=== PATIENT | male | born 1990 | race Caucasian/White ===

== ENCOUNTER 2017-05-02 10:18 | Emergency (ER) | payer OTHER ==
[2017-05-02 10:25] VITALS: BP 139/69; PULSE 108; RESP 20; TEMP 98
--- NOTE | 2017-05-02 10:43 | ED ---
General Adult HPI - General Chief complaint: Skin/Abscess/Foreign Body Stated complaint: skin irritation Time Seen by Provider: 05/02/17 10:27 Source: patient, RN notes reviewed Mode of arrival: ambulatory Limitations: no limitations - History of Present Illness Initial comments: 26-year-old male presents to the emergency department with a chief complaint of abscess to the left lower abdomen. Patient states that he has a history of these and has had about 3 of them over the last few months. Patient states that his pain has increased she's noticed some redness around the area so he thought that he should be evaluated. Patient ate that he does not know if he has history of MRSA or not. Patient denies any fever chills. Patient states he is now some redness around the area. Patient states he is not having drainage from the area this time. Patient's denies any other complaints. Patient denies any recent fever, chills, shortness of breath, chest pain, back pain, abdominal pain, nausea vomiting, numbness or tingling, dysuria or hematuria, constipation or diarrhea, headaches or visual changes, or any other current symptoms. - Related Data Previous Rx's Medication Instructions Recorded Sulfamethox-Tmp 800-160Mg [Bactrim 2 each PO Q12HR #56 tab 05/02/17 DS 800-160 mg] Allergies Allergy/AdvReac Type Severity Reaction Status Date / Time No Known Allergies Allergy Verified 05/02/17 10:45 Review of Systems ROS Statement: Those systems with pertinent positive or pertinent negative responses have been documented in the HPI. ROS Other: All systems not noted in ROS Statement are negative. Past Medical History Additional Past Medical History / Comment(s): compartment symdrome History of Any Multi-Drug Resistant Organisms: None Reported Additional Past Surgical History / Comment(s): bilateral lower leg surgery Past Psychological History: No Psychological Hx Reported Smoking Status: Current every day smoker Past Alcohol Use History: None Reported Past Drug Use History: None Reported General Exam Limitations: no limitations General appearance: alert, in no apparent distress Respiratory exam: Present: normal lung sounds bilaterally. Absent: respiratory distress, wheezes, rales, rhonchi, stridor Cardiovascular Exam: Present: regular rate, normal rhythm, normal heart sounds. Absent: systolic murmur, diastolic murmur, rubs, gallop, clicks GI/Abdominal exam: Present: soft, normal bowel sounds, other (Abscess to left lower quadrant abdominal wall with associated erythema and induration). Absent : distended, tenderness, guarding, rebound, rigid Neurological exam: Present: alert, oriented X3 Psychiatric exam: Present: normal affect, normal mood Skin exam: Present: warm, dry Course Vital Signs 05/02/17 10:22 Temperature 98.0 F Pulse Rate 108 H Respiratory 20 Rate Blood Pressure 139/69 O2 Sat by Pulse 98 Oximetry Procedures - Procedures Initial comment: Procedure: Incision and drainage The skin overlying the abscess was prepped with Betadine, and anesthetized with 1% lidocaine without epinephrine. A #11 scalpel was then used to incise the abscess. Some purulent material was then extracted from the lesion. Wound culture obtained. Gauze dressing placed on top, The patient tolerated the procedure well. Medical Decision Making - Medical Decision Making 26-year-old male presents for abscess. This time we will start him on Bactrim. We did do an aerobic culture. We discussed follow-up on this. We discussed return parameters fci and all questions. Patient stated that he understood he is given this plan. All questions were answered. He will be discharged. Disposition Clinical Impression: Abdominal wall abscess Disposition: HOME SELF-CARE Condition: Stable Instructions: Abscess (ED) Additional Instructions: Please use medication as discussed. Please follow up with family doctor if symptoms have not improved over the next two days. Please return to the emergency room if your symptoms increase or worsen or for any other concerns. Prescriptions: Sulfamethox-Tmp 800-160Mg [Bactrim DS 800-160 mg] 2 each PO Q12HR #56 tab Referrals: Ro Wesley MD [STAFF PHYSICIAN] - 1-2 days Time of Disposition: 10:52
== END 2017-05-02 11:11 | disposition home or self-care (01) ==
LOC: EC 10:18
DX: L02.211 Cutaneous abscess of abdominal wall (principal); F17.200 Nicotine dependence, unspecified, uncomplicated
CPT/HCPCS: 10060; 87070; 87077; 87186; 87205; 99283

== ENCOUNTER 2017-07-16 16:01 | Emergency (ER) | payer OTHER ==
[2017-07-16 16:22] VITALS: RESP 18
[2017-07-16] MEDS ORDERED: IPRATROPIUM-ALBUTEROL 3 ML NEB INHALATION STA (17:08)
--- NOTE | 2017-07-16 17:13 | ED ---
General Adult HPI - General Chief complaint: Nausea/Vomiting/Diarrhea Stated complaint: FLU LIKE SYMPTOMS Time Seen by Provider: 07/16/17 16:52 Source: patient, RN notes reviewed Mode of arrival: ambulatory Limitations: no limitations - History of Present Illness Initial comments: This is a 26-year-old male with a benign past history states she's had congestion cough with greenish brown phlegm for a tired having chills and sweats and yesterday developed fever. States the fever was 99.9. He states all the symptoms started about 1-2 days ago. Of note his foreign have-month- old child recently had cold symptoms which are now resolving. He denies any chest pain or other symptoms or other modifying factors. Patient does admit that he smokes about a quarter pack of cigars per day we did discuss smoking cessation. - Related Data Home Medications Medication Instructions Recorded Confirmed Gabapentin 1,200 mg PO TID 07/16/17 07/16/17 Mirtazapine [Remeron] 45 mg PO HS 07/16/17 07/16/17 Previous Rx's Medication Instructions Recorded Amoxicillin 500 mg PO Q8H #30 capsule 07/16/17 methylPREDNISolone Dose Pack 4 mg PO DIRECTED #21 package 07/16/17 [Medrol Dose Pack] Allergies Allergy/AdvReac Type Severity Reaction Status Date / Time No Known Allergies Allergy Verified 07/16/17 16:41 Review of Systems ROS Statement: Those systems with pertinent positive or pertinent negative responses have been documented in the HPI. ROS Other: All systems not noted in ROS Statement are negative. Past Medical History Additional Past Medical History / Comment(s): compartment symdrome History of Any Multi-Drug Resistant Organisms: None Reported Additional Past Surgical History / Comment(s): bilateral lower leg surgery Past Psychological History: No Psychological Hx Reported Smoking Status: Current every day smoker Past Alcohol Use History: None Reported Past Drug Use History: None Reported General Exam - General Exam Comments Initial Comments: Is a well-developed well-nourished awake alert oriented times 3 male Limitations: no limitations General appearance: alert, in no apparent distress Head exam: Present: atraumatic, normocephalic, normal inspection Eye exam: Present: normal appearance, PERRL, EOMI. Absent: scleral icterus, conjunctival injection, periorbital swelling ENT exam: Present: TM's normal bilaterally, other (Boggy nasal mucosa with posterior pharyngeal hyperemia. No exudates.) Neck exam: Present: normal inspection. Absent: tenderness, meningismus, lymphadenopathy Respiratory exam: Present: wheezes, decreased breath sounds, other (scattered wheezes diminished breath sounds no focal consolidations). Absent: respiratory distress, rales, rhonchi, stridor Cardiovascular Exam: Present: regular rate, normal rhythm, normal heart sounds. Absent: systolic murmur, diastolic murmur, rubs, gallop, clicks GI/Abdominal exam: Present: soft, normal bowel sounds. Absent: distended, tenderness, guarding, rebound, rigid Extremities exam: Present: normal inspection, full ROM, normal capillary refill. Absent: tenderness, pedal edema, joint swelling, calf tenderness Back exam: Present: normal inspection Neurological exam: Present: alert, oriented X3, CN II-XII intact Psychiatric exam: Present: normal affect, normal mood Skin exam: Present: warm, dry, intact, normal color. Absent: rash Course Vital Signs 07/16/17 07/16/17 07/16/17 16:19 17:18 17:26 Temperature 98.6 F Pulse Rate 80 68 73 Respiratory 18 Rate Blood Pressure 115/71 O2 Sat by Pulse 97 Oximetry Medical Decision Making - Medical Decision Making Reevaluation patient reveals improved aeration with diminished wheezing. He is actually much better. He will be placed on appropriate medication he is a follow-up with his doctor return when necessary - Lab Data Lab Results 07/16/17 Range/Units 17:10 Influenza Type A RNA Not Detected (Not Detectd) Influenza Type B (PCR) Not Detected (Not Detectd) - Radiology Data Radiology results: report reviewed (I did review the imaging and report no acute findings.), image reviewed Disposition Clinical Impression: Tracheobronchitis Disposition: HOME SELF-CARE Condition: Good Instructions: Acute Bronchitis (ED), Bronchospasm (ED) Prescriptions: Amoxicillin 500 mg PO Q8H #30 capsule methylPREDNISolone Dose Pack [Medrol Dose Pack] 4 mg PO DIRECTED #21 package Referrals: None,Stated [Primary Care Provider] - 1-2 days
--- NOTE | 2017-07-16 17:49 | XR ---
EXAMINATION TYPE: XR chest 2V DATE OF EXAM: 07/16/2017 COMPARISON: NONE HISTORY: Cough and congestion TECHNIQUE: Frontal and lateral views of the chest are obtained. FINDINGS: Heart and mediastinum are normal. Lungs are clear. Diaphragm is normal. Bony thorax appear s normal. IMPRESSION: Normal chest
[2017-07-16 18:34] VITALS: BP 127/87; PULSE 87; TEMP 98.7
== END 2017-07-16 18:33 | disposition home or self-care (01) ==
LOC: EC 16:01
DX: J40 Bronchitis, not specified as acute or chronic (principal); F17.290 Nicotine dependence, other tobacco product, uncomplicated; Z79.899 Other long term (current) drug therapy
CPT/HCPCS: 71046; 87502; 94640; 99283

== ENCOUNTER 2017-07-30 14:33 | Inpatient (IN) | payer OTHER ==
[2017-07-30] MEDS ORDERED: ACETAMINOPHEN TAB 325 MG TAB PO STA (14:48)
[2017-07-30] MEDS ORDERED: SODIUM CHLORIDE 0.9% 1,000 ML IV STA ×3 (14:48)
[2017-07-30] MEDS ORDERED: IBUPROFEN 600 MG TAB PO STA (14:49)
[2017-07-30] MEDS ORDERED: VANCOMYCIN 1,000 MG in SODIUM CHLORIDE 0.9% 250 ML IVPB STA (14:51)
[2017-07-30] MEDS ORDERED: PIPERACILLIN-TAZOBACTAM 3.375 GM in DEXTROSE/WATER 1 50ML.BAG IVPB STA (14:51)
[2017-07-30] MEDS ORDERED: HYDROcodone/APAP 5-325MG 1 EACH TAB PO STA (14:52)
[2017-07-30] MEDS ORDERED: VANCOMYCIN 2,000 MG in SODIUM CHLORIDE 0.9% 500 ML IVPB STA (14:56)
[2017-07-30] MEDS ORDERED: VANCOMYCIN IV PER PHARMACY 1 EACH MISC MISCELLANE PRN (14:57)
--- NOTE | 2017-07-30 14:57 | ED ---
General Adult HPI - General Chief complaint: Extremity Injury, Lower Stated complaint: left foot Post Op Infection Time Seen by Provider: 07/30/17 14:41 Source: patient, RN notes reviewed Mode of arrival: ambulatory Limitations: no limitations - History of Present Illness Initial comments: Patient 26-year-old male status post left foot surgery times one week, presenting today with a chief complaint of possible infection. Patient does admit that his had increased pain today. His noticed increased swelling and some redness to the left foot coming up into the left lower leg. Patient states that had surgery to remove some antibiotic beads that weren't his foot after fasciotomy that was done several years ago. He states he was having some pain in the thought it might be the antibiotic beads causing it. Patient states been having increased pain today. Patient denies any other complaints or associated symptoms at this time. Patient denies any recent fever, chills, shortness of breath, chest pain, back pain, abdominal pain, nausea or vomiting, dysuria or hematuria, constipation or diarrhea, headaches or visual changes, or any other complaints. - Related Data Home Medications Medication Instructions Recorded Confirmed Mirtazapine [Remeron] 45 mg PO HS 07/16/17 07/30/17 Gabapentin [Neurontin] 900 mg PO TID 07/30/17 07/30/17 HYDROcodone/APAP 7.5-325MG [[place] 1 tab PO Q4H PRN 07/30/17 07/30/17 7.5-325] Allergies Allergy/AdvReac Type Severity Reaction Status Date / Time No Known Allergies Allergy Verified 07/30/17 15:42 Review of Systems ROS Statement: Those systems with pertinent positive or pertinent negative responses have been documented in the HPI. ROS Other: All systems not noted in ROS Statement are negative. Past Medical History Additional Past Medical History / Comment(s): compartment symdrome History of Any Multi-Drug Resistant Organisms: None Reported Additional Past Surgical History / Comment(s): bilateral lower leg surgery, left foot surgery Past Psychological History: No Psychological Hx Reported Smoking Status: Current every day smoker Past Alcohol Use History: None Reported Past Drug Use History: None Reported General Exam - General Exam Comments Initial Comments: General: The patient is awake and alert, in no distress, and does not appear acutely ill. Eye: Pupils are equal, round and reactive to light, extra-ocular movements are intact. No nystagmus. There is normal conjunctiva bilaterally. No signs of icterus. Ears, nose, mouth and throat: There are moist mucous membranes and no oral lesions. Neck: The neck is supple, there is no tenderness or JVD. Cardiovascular: There is a regular rate and rhythm. No murmur, rub or gallop is appreciated. Respiratory: Lungs are clear to auscultation, respirations are non-labored, breath sounds are equal. No wheezes, stridor, rales, or rhonchi. Musculoskeletal: Normal ROM. Increased tenderness over the dorsal aspect of the left foot. Strength 5/5. Sensation intact. Pulses equal bilaterally 2+. Neurological: A&O x 3. CN II-XII intact, There are no obvious motor or sensory deficits. Coordination appears grossly intact. Speech is normal. Skin: Patient does have 2 surgical incisions to the top of the left foot. Increased redness surrounding the lateral incision. No drainage. Increased warmth and tenderness on palpation. Redness spreading up into the left lower extremity approximately retirement up the left hart. Psychiatric: Cooperative, appropriate mood & affect, normal judgment. Limitations: no limitations Course Vital Signs 07/30/17 07/30/17 14:38 16:22 Temperature 102.5 F H 102.5 F H Pulse Rate 129 H 108 H Respiratory 18 18 Rate Blood Pressure 136/63 137/67 O2 Sat by Pulse 98 97 Oximetry Medical Decision Making - Medical Decision Making Patient 26-year-old male presenting to the emergency room today with a infection to the left foot. Patient had recent surgery at [facility]. Patient did have fever 102.5 and tachycardic at triage. Patient started on antibiotics of Zosyn and minimize here in the emergency room. Patient reexamined doing well at this time. Patient states he would prefer to stay at this hospital for IV antibiotics as his family is local to the area and does not want to be transferred to [facility] at this time. Patient case was discussed with attending physician Dr. Jarvis who did discuss the case with admitting physician Dr. Subramanian who will admit the patient with consult infectious disease. Patient's x-rays negative for any evidence of osteomyelitis. - Lab Data Result diagrams: 07/30/17 15:27 07/30/17 15:27 Lab Results 07/30/17 07/30/1718 Range/Units 15:27 15:27 15:27 WBC 15.7 H (3.8-10.6) k/uL RBC 4.69 (4.30-5.90) m/uL Hgb 14.4 (13.0-17.5) gm/dL Hct 42.2 (39.0-53.0) % MCV 90.0 (80.0-100.0) fL MCH 30.7 (25.0-35.0) pg MCHC 34.1 (31.0-37.0) g/dL RDW 12.1 (11.5-15.5) % Plt Count 237 (150-450) k/uL Neutrophils % 81 % Lymphocytes % 12 % Monocytes % 6 % Eosinophils % 1 % Basophils % 0 % Neutrophils # 12.7 H (1.3-7.7) k/uL Lymphocytes # 1.8 (1.0-4.8) k/uL Monocytes # 0.9 (0-1.0) k/uL Eosinophils # 0.1 (0-0.7) k/uL Basophils # 0.0 (0-0.2) k/uL Sodium 142 (137-145) mmol/L Potassium 3.5 (3.5-5.1) mmol/L Chloride 100 (98-107) mmol/L Carbon Dioxide 29 (22-30) mmol/L Anion Gap 13 mmol/L BUN 16 (9-20) mg/dL Creatinine 0.60 L (0.66-1.25) mg/dL Est GFR (CKD-EPI)AfAm >90 (>60 ml/min/1.73 sqM) Est GFR (CKD-EPI)NonAf >90 (>60 ml/min/1.73 sqM) Glucose 73 L (74-99) mg/dL Plasma Lactic Acid Pavel 0.8 (0.7-2.0) mmol/L Calcium 9.6 (8.4-10.2) mg/dL Total Bilirubin 0.6 (0.2-1.3) mg/dL AST 41 (17-59) U/L ALT 80 H (21-72) U/L Alkaline Phosphatase 82 (38-126) U/L Total Protein 7.0 (6.3-8.2) g/dL Albumin 4.2 (3.5-5.0) g/dL Disposition Clinical Impression: Postoperative infection, Cellulitis Disposition: ADMITTED IP TO THIS HOSP Condition: Good Is patient prescribed a controlled substance at d/c from ED?: No Referrals: None,Stated [Primary Care Provider] - 1-2 days Time of Disposition: 16:36
[2017-07-30] MEDS ORDERED: VANCOMYCIN IV PER PHARMACY 1 EACH MISC MISCELLANE ONE (15:00)
[2017-07-30 15:48] LABS: Basophils % (A) 0 %; Eosinophils # (A) 0.1 k/uL (0-0.7); Eosinophils % (A) 1 %; HCT 42.2 % (39.0-53.0); HGB 14.4 gm/dL (13.0-17.5); Lymphocytes # (A) 1.8 k/uL (1.0-4.8); Lymphocytes % (A) 12 %; MCH 30.7 pg (25.0-35.0); MCHC 34.1 g/dL (31.0-37.0); Monocytes # (A) 0.9 k/uL (0-1.0); Monocytes % (A) 6 %; Neutrophils # (A) 12.7 k/uL (1.3-7.7); Neutrophils % (A) 81 %; Platelet Count 237 k/uL (150-450); RBC 4.69 m/uL (4.30-5.90); RDW 12.1 % (11.5-15.5); WBC 15.7 k/uL (3.8-10.6)
--- NOTE | 2017-07-30 15:55 | XR ---
EXAMINATION TYPE: XR foot complete LT DATE OF EXAM: 07/30/2017 CLINICAL HISTORY: Compartment syndrome. Postop infection of the left foot. TECHNIQUE: Frontal, lateral, and oblique images of the left foot are obtained. COMPARISON: None FINDINGS: There is circumferential soft tissue swelling of the midfoot. No focal subcutaneous emphyse ma or radiopaque foreign body is seen. No evidence of acute fracture or dislocation is noted. Periost eal reaction a single view is noted at the base of the first metatarsal without cortical rim erosion or focal adjacent soft tissue swelling. This is likely sequela of prior injury. IMPRESSION: Circumferential soft tissue swelling of the midfoot without focality or subcutaneous emph ysema to indicate osteomyelitis. Mild periosteal reaction is seen of the base of the first metatarsal likely from prior injury as no additional findings are seen at this location.
[2017-07-30 15:59] LABS: ALT 80 U/L (21-72); AST 41 U/L (17-59); Albumin 4.2 g/dL (3.5-5.0); Alkaline Phosphatase 82 U/L (38-126); Anion Gap 13 mmol/L; Blood Urea Nitrogen 16 mg/dL (9-20); Calcium 9.6 mg/dL (8.4-10.2); Carbon Dioxide 29 mmol/L (22-30); Chloride 100 mmol/L (98-107); Glucose 73 mg/dL (74-99); Potassium 3.5 mmol/L (3.5-5.1); Sodium 142 mmol/L (137-145); Total Bilirubin 0.6 mg/dL (0.2-1.3)
[2017-07-30] MEDS ORDERED: IBUPROFEN 600 MG TAB PO PRN (16:37)
[2017-07-30] MEDS ORDERED: NALOXONE 0.4 MG/ML 1 ML VIAL IV PRN (16:37)
[2017-07-30] MEDS ORDERED: ACETAMINOPHEN TAB 325 MG TAB PO PRN ×2 (16:37→17:46)
[2017-07-30] MEDS ORDERED: ONDANSETRON 4 MG/2 ML VIAL IVP PRN (16:37)
[2017-07-30 16:40] LABS: Appearance,Urine Clear (Clear); Bilirubin,Urine Negative (Negative); Blood,Urine Negative (Negative); Color,Urine Yellow; Glucose,Urine (UA) Negative (Negative); Ketones,Urine Negative (Negative); Leukocyte Esterase,Urine Negative (Negative); Nitrite,Urine Negative (Negative); PH, Urine 7.5 (5.0-8.0); Protein,Urine Negative (Negative); Specific Gravity,Urine 1.015 (1.001-1.035); Urobilinogen,Urine <2.0 mg/dL (<2.0)
[2017-07-30] MEDS: IBUPROFEN 600 MG TAB PO PRN (17:58)
[2017-07-30] MEDS: SODIUM CHLORIDE 0.9% 1,000 ML IV SCH (18:03)
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
[2017-07-30] MEDS: GABAPENTIN 400 MG CAP PO SCH (20:39)
[2017-07-30] MEDS: MIRTAZAPINE 15 MG TAB PO SCH (20:40)
[2017-07-30] MEDS: HYDROcodone/APAP 5-325MG 1 EACH TAB PO PRN (20:41)
[2017-07-31] MEDS: VANCOMYCIN 1,750 MG in SODIUM CHLORIDE 0.9% 250 ML IVPB SCH ×4 (00:22→23:10)
[2017-07-31] MEDS: SODIUM CHLORIDE 0.9% 1,000 ML IV SCH ×4 (03:01→21:31)
[2017-07-31] MEDS: PIPERACILLIN-TAZOBACTAM 3.375 GM in DEXTROSE/WATER 1 50ML.BAG IVPB SCH ×3 (03:01→18:02)
[2017-07-31] MEDS: IBUPROFEN 600 MG TAB PO PRN (07:52)
[2017-07-31] MEDS: GABAPENTIN 400 MG CAP PO SCH ×3 (08:19→21:29)
[2017-07-31 08:45] LABS: Basophils % (A) 0 %; Eosinophils # (A) 0.3 k/uL (0-0.7); Eosinophils % (A) 3 %; HCT 39.9 % (39.0-53.0); HGB 13.6 gm/dL (13.0-17.5); Lymphocytes # (A) 1.6 k/uL (1.0-4.8); Lymphocytes % (A) 16 %; MCH 31.1 pg (25.0-35.0); MCV 91.4 fL (80.0-100.0); Mean Platelet Volume 6.9; Monocytes # (A) 0.5 k/uL (0-1.0); Monocytes % (A) 5 %; Neutrophils # (A) 7.4 k/uL (1.3-7.7); Neutrophils % (A) 75 %; Platelet Count 190 k/uL (150-450); RBC 4.37 m/uL (4.30-5.90)
[2017-07-31 09:05] LABS: ALT 53 U/L (21-72); AST 27 U/L (17-59); Albumin 3.2 g/dL (3.5-5.0); Alkaline Phosphatase 79 U/L (38-126); Anion Gap 11 mmol/L; Blood Urea Nitrogen 11 mg/dL (9-20); Calcium 8.5 mg/dL (8.4-10.2); Carbon Dioxide 24 mmol/L (22-30); Chloride 109 mmol/L (98-107); Glucose 118 mg/dL (74-99); Potassium 3.9 mmol/L (3.5-5.1); Sodium 144 mmol/L (137-145); Total Bilirubin 0.5 mg/dL (0.2-1.3); Total Protein 5.6 g/dL (6.3-8.2)
--- NOTE | 2017-07-31 10:33 | P.CONS ---
History of Present Illness - Reason for Consult Consult date: 07/31/17 Postoperative infection, sinusitis - History of Present Illness This is a 26-year-old male patient gives history that 4 years ago he developed acute renal failure from intensive exercise along with protein supplements. He required hemodialysis treatment once at that time. He also developed compartment syndrome to the bilateral lower extremities and the right thigh and underwent fasciotomy to all areas he states he was in an induced coma for 9 days and then took him 2 years to learn how to walk. He subsequently 2 years ago underwent a fasciotomy to the left foot and antibiotic beads were placed at that time. It was thought he was having trouble with the beads causing him pain and he had additional surgery last Sunday in the beads were removed by Dr. Muse at [facility]. Patient states that he did not have any postop complications and was feeling fine until sudden onset yesterday of feeling heat flash [place]'s temperature was 101.3. He then came into [facility] emergency center for evaluation of this was found to have a temperature of 102.5, white count of 15.7, tachycardia 129. Pulse ox was 98% on room air lactic acid 0.8. Urinalysis was clear with nitrate and leukoesterase negative. Blood culture and urine culture were obtained. Foot x-ray showed soft tissue swelling in the midfoot without focality or subcutaneous emphysema to indicate osteomyelitis. Mild. Jenkins reaction in the base of the first metatarsal. Patient was started on vancomycin and Zosyn and [facility]. He is currently undergoing a nuclear medicine bone scan. Patient states that his redness and swelling have improved since his admission but he still continues to have pain and tenderness to the left foot. The foot is also started to drain serous drainage. He has noted a small amount of serous drainage on dressing when he changes it. Fever and chills are improved. Patient denies having any injury to his left foot. Review of Systems All systems: negative Constitutional: Reports chills, Reports fever, Reports weakness, Denies anorexia , Denies poor appetite Eyes: denies blurred vision, denies pain Ears, nose, mouth and throat: Denies dental pain, Denies headache, Denies mouth pain, Denies sore throat, Denies vertigo Cardiovascular: Denies chest pain, Denies decreased exercise tolerance, Denies dyspnea on exertion, Denies edema, Denies lightheadedness, Denies shortness of breath, Denies syncope Respiratory: Denies cough Gastrointestinal: Denies abdominal pain, Denies diarrhea, Denies nausea, Denies vomiting Genitourinary: Denies dysuria, Denies urinary frequency, Denies urinary retention Musculoskeletal: Denies frequent falls, Denies myalgias Musculoskeletal: left: foot pain, foot swelling Integumentary: Reports wounds, Denies pruritus, Denies rash Neurological: Denies numbness, Denies weakness Psychiatric: Denies anxiety, Denies depression Endocrine: Denies fatigue, Denies weight change Past Medical History Additional Past Medical History / Comment(s): Acute renal failure secondary to intense work out, protein shakes and not enough water status post hemodialysis 1, compartment syndrome to the bilateral lower extremities and right thigh, pneumothroax, seizure x1 thought d/t medication reaction. Bilateral foot drop with repair of the right History of Any Multi-Drug Resistant Organisms: None Reported Additional Past Surgical History / Comment(s): bilateral lower leg , rt thigh fasciotomies 2013, a left foot fasciotomies 2015 followed by removal of antibiotic beads 07/23/2017, right foot tendon surgery for foot drop, skin graft from the left thigh, past chest tube, i&D TO [facility] ABD Past Anesthesia/Blood Transfusion Reactions: No Reported Reaction Smoking Status: Current every day smoker Additional Past Alcohol Use History / Comment(s): Patient is currently an active smoker. He has smoked one to one and half packs per day since he was 14 years of age. He is now down to quarter pack of cigarettes. He does smoke marijuana occasionally. He drinks alcohol rarely maybe one beer per month. He lives at home with his and young children. 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 - Past Family History Mother Family Medical History: Cancer Additional Family Medical History / Comment(s): FROM BREAST CANCER AT AGE 36 Father Additional Family Medical History / Comment(s): ALCOHOLIC Medications and Allergies Home Medications Medication Instructions Recorded Confirmed Type Mirtazapine [Remeron] 45 mg PO HS 07/16/17 07/30/17 History Gabapentin [Neurontin] 900 mg PO TID 07/30/17 07/30/17 History HYDROcodone/APAP 7.5-325MG [Moffit 1 tab PO Q4H PRN 07/30/17 07/30/17 History 7.5-325] Allergies Allergy/AdvReac Type Severity Reaction Status Date / Time No Known Allergies Allergy Verified 07/30/17 15:42 Physical Exam Vitals: Vital Signs Temp Pulse Pulse Resp BP BP BP 07/31/17 05:35 97.3 F L 87 18 96/47 07/30/17 22:35 98.2 F 70 16 95/60 07/30/17 17:35 101.4 F H 109 H 16 105/59 07/30/17 16:59 102.1 F H 07/30/17 16:22 102.5 F H 108 H 18 137/67 07/30/17 14:38 102.5 F H 129 H 18 136/63 Pulse Ox 07/31/17 05:35 100 07/30/17 22:35 97 07/30/17 17:35 95 07/30/17 16:59 07/30/17 16:22 97 07/30/17 14:38 98 Intake and Output 07/30/17 07/31/17 07/31/17 22:59 06:59 14:59 Output Total 150 800 Balance -150 -800 Output: Urine 150 800 Other: Voiding Method Urinal # Voids 1 Gen: This is a 26-year-old male patient sitting up in bed and appears to be comfortable. HEENT: Head is atraumatic, normocephalic. Pupils equal, round. Sclerae is anicteric. Conjunctiva pink. Because members of the mouth are moist. NECK: Supple. No JVD. No lymphadenopathy. No thyromegaly. LUNGS: Clear to auscultation. No wheezes or rhonchi. No intercostal retractions. HEART: Regular rate and rhythm. No murmur. ABDOMEN: Soft. Bowel sounds are present. No masses. No tenderness. EXTREMITIES: To the left foot, there are 3 wounds that are new. Wound over the fifth metatarsal is having serous drainage he also has healed scars to the foot on the medial and dorsalis area foot has erythema and edema. Extremely tender to touch. Minimal range of motion to the toes. Capillary refill is immediate dorsalis pedis is weak. 2 bilateral lower extremities he does have a healed fasciotomies scars on the lateral and medial sides of both legs and also the right thigh lateral area. NEUROLOGICAL: Patient is awake, alert and oriented x3. Cranial nerves 2 through 12 are grossly intact. Results Results: Laboratory Results WBC 10.0 k/uL (3.8-10.6) 07/31/17 08: RBC 4.37 m/uL (4.30-5.90) 07/31/17 08: Hgb 13.6 gm/dL (13.0-17.5) 07/31/17: Hct 39.9 % (39.0-53.0) 07/31/17 08: MCV 91.4 fL (80.0-100.0) 07/31/17: MCH 31.1 pg (25.0-35.0) 07/31/17: MCHC 34.0 g/dL (31.0-37.0) 07/31/17 08: RDW 12.0 % (11.5-15.5) 07/31/17 08: Plt Count 190 k/uL (150-450) 07/31/17 08: Neutrophils % 75 % 07/31/17 08: Lymphocytes % 16 % 07/31/17 08: Monocytes % 5 % 07/31/17: Eosinophils % 3 % 07/31/17: Basophils % 0 % 07/31/17 08: Neutrophils # 7.4 k/uL (1.3-7.7) 07/31/17 08: Lymphocytes # 1.6 k/uL (1.0-4.8) 07/31/17: Monocytes # 0.5 k/uL (0-1.0) 07/31/17 08: Eosinophils # 0.3 k/uL (0-0.7) 07/31/17 08: Basophils # 0.0 k/uL (0-0.2) 07/31/17 08: Sodium 144 mmol/L (137-145) 07/31/17 08: Potassium 3.9 mmol/L (3.5-5.1) 07/31/17 08: Chloride 109 mmol/L (98-107) H 07/31/17 08: Carbon Dioxide 24 mmol/L (22-30) 07/31/17 08:29 Anion Gap 11 mmol/L 07/31/17 08:29 BUN 11 mg/dL (9-20) 07/31/17 08:29 Creatinine 0.48 mg/dL (0.66-1.25) L 07/31/17 08:29 Est GFR (CKD-EPI)AfAm >90 (>60 ml/min/1.73 sqM) 07/31/17 08:29 Est GFR (CKD-EPI)NonAf >90 (>60 ml/min/1.73 sqM) 07/31/17 08:29 Glucose 118 mg/dL (74-99) H 07/31/17 08:29 Plasma Lactic Acid Pavel 0.8 mmol/L (0.7-2.0) 07/30/17 15:27 Calcium 8.5 mg/dL (8.4-10.2) 07/31/17 08:29 Total Bilirubin 0.5 mg/dL (0.2-1.3) 07/31/17 08:29 AST 27 U/L (17-59) 07/31/17 08:29 ALT 53 U/L (21-72) 07/31/17 08:29 Alkaline Phosphatase 79 U/L (38-126) 07/31/17 08:29 Total Protein 5.6 g/dL (6.3-8.2) L 07/31/17 08:29 Albumin 3.2 g/dL (3.5-5.0) L 07/31/17 08:29 Urine Color Yellow 07/30/17 16:28 Urine Appearance Clear (Clear) 07/30/17 16:28 Urine pH 7.5 (5.0-8.0) 07/30/17 16:28 Ur Specific [place] 1.015 (1.001-1.035) 07/30/17 16:28 Urine Protein Negative (Negative) 07/30/17 16:28 Urine Glucose (UA) Negative (Negative) 07/30/17 16:28 Urine Ketones Negative (Negative) 07/30/17 16:28 Urine Blood Negative (Negative) 07/30/17 16:28 Urine Nitrite Negative (Negative) 07/30/17 16:28 Urine Bilirubin Negative (Negative) 07/30/17 16:28 Urine Urobilinogen <2.0 mg/dL (<2.0) 07/30/17 16:28 Ur Leukocyte Esterase Negative (Negative) 07/30/17 16:28 CBC & Chem 7: 07/31/17 08:29 08/01/17 08:48 Labs: Abnormal Lab Results - Last 24 Hours (Table) 07/30/17 07/30/17 07/31/17 Range/Units 15:27 15:27 08:29 WBC 15.7 H (3.8-10.6) k/uL Neutrophils # 12.7 H (1.3-7.7) k/uL Chloride 109 H (98-107) mmol/L Creatinine 0.60 L 0.48 L (0.66-1.25) mg/dL Glucose 73 L 118 H (74-99) mg/dL ALT 80 H (21-72) U/L Total Protein 5.6 L (6.3-8.2) g/dL Albumin 3.2 L (3.5-5.0) g/dL Microbiology - Last 24 Hours (Table) 07/30/17 16:28 Urine Culture - Preliminary Urine,Voided Assessment and Plan Plan: This is a 26-year-old male patient who presented to the hospital following recent surgery for removal of antibiotic beads implanted in the left foot 2 years ago. Surgery was done on Sunday. Patient presents with cellulitis to the foot with signs of sepsis that include fever, tachycardia and leukocytosis. Patient is currently on vancomycin and Zosyn which will be continued until further culture reports are obtained. Blood cultures status received and will culture will be obtained. He is currently undergoing bone scan and await results. Discussed with patient that he may need to return to [facility] if surgical intervention is required. He states he would rather stay in [place] because his and children are near. Continue supportive care. Further recommendations as patient progresses. The above dictated assessment and findings were discussed with Dr. Flores. The impression and plan of care have been directed as dictated. Chantal Zeng nurse practitioner acting as scribe for Dr. Flores.
[2017-07-31] MEDS: NICOTINE 14MG/24HR PATCH TRANSDERM SCH (10:41)
--- NOTE | 2017-07-31 13:57 | NM ---
EXAMINATION TYPE: NM bone 3 phase DATE OF EXAM: 07/31/2017 COMPARISON: 07/30/2017 HISTORY: left foot osteomyelitis Triple phase bone scintigraphy was performed following the injection of 27 mCi Tc 99m MDP. Immediate images and 6 hours post injection images acquired. FINDINGS: There is increased perfusion to the left foot with a greater involvement of the tarsal bones and late ral compartment of the foot. There is increased soft tissue uptake in this region. Delayed imaging demonstrates focal increased uptake near the first tarsal metatarsal junction and dewayne ng the anterior margin of the talus. IMPRESSION: 1. Findings are compatible with cellulitis with increased perfusion and soft tissue uptake. Osteomyel itis in the region of the most medial cuneiform bone and anterior margin of the talus in the differen tial diagnosis. Recommend correlation with MRI.
[2017-07-31] MEDS: HYDROcodone/APAP 5-325MG 1 EACH TAB PO PRN (16:58)
[2017-07-31] MEDS: MIRTAZAPINE 15 MG TAB PO SCH (21:29)
[2017-07-31] MEDS: KETOROLAC 30 MG/ML 1 ML VIAL IVP SCH ×2 (21:30→23:10)
--- NOTE | 2017-08-01 00:07 | P.CON ---
Consult Note - . Consult date: 07/31/17 Assessment/Plan:: This is a 26-year-old male patient gives history that 4 years ago he developed acute renal failure from intensive exercise along with protein supplements. He required hemodialysis treatment once at that time. He also developed compartment syndrome to the bilateral lower extremities and the right thigh and underwent fasciotomy to all areas he states he was in an induced coma for 9 days and then took him 2 years to learn how to walk. He subsequently 2 years ago underwent a fasciotomy to the left foot and antibiotic beads were placed at that time. It was thought he was having trouble with the beads causing him pain and he had additional surgery last Sunday in the beads were removed by Dr. Muse at [facility]. Patient states that he did not have any postop complications and was feeling fine until sudden onset yesterday of feeling heat flash [place]'s temperature was 101.3. He then came into [facility] emergency center for evaluation of this was found to have a temperature of 102.5, white count of 15.7, tachycardia 129. Pulse ox was 98% on room air lactic acid 0.8. Urinalysis was clear with nitrate and leukoesterase negative. Blood culture and urine culture were obtained. Foot x-ray showed soft tissue swelling in the midfoot without focality or subcutaneous emphysema to indicate osteomyelitis. Mild. Jenkins reaction in the base of the first metatarsal. Patient was started on vancomycin and Zosyn and admitted to the [facility] floor. He is currently undergoing a nuclear medicine bone scan. Patient states that his redness and swelling have improved since his admission but he still continues to have pain and tenderness to the left foot. The foot is also started to drain serous drainage. He has noted a small amount of serous drainage on dressing when he changes it. Fever and chills are improved. Patient denies having any injury to his left foot. Please see the consult note as dictated by nurse practitioner Mrs. Chantal Zeng. Pleasant young gentleman with the significant history is noted who had removal of antibiotic beads from his left foot is now developed a cellulitis with ascending lymphangitis. He is feeling better with elevation and antibiotic therapy. Cultures are in process. Vancomycin and Zosyn continue for now while cultures are in process. As the foot improves will likely be transitioned to oral antibiotic therapy to complete the course of his treatment of cellulitis and lymphangitis. It is unlikely there is deep infection at this time he will follow-up with his orthopedic surgeon in the [place] system after his discharge. With his improvement does not need urgent evaluation will need to have suture removal next week. I agree with evaluation, assessment and plan as dictated by nurse practitioner Mrs. Chantal Zeng..
[2017-08-01] MEDS: PIPERACILLIN-TAZOBACTAM 3.375 GM in DEXTROSE/WATER 1 50ML.BAG IVPB SCH ×3 (02:28→18:07)
[2017-08-01] MEDS: SODIUM CHLORIDE 0.9% 1,000 ML IV SCH ×4 (02:30→23:18)
[2017-08-01] MEDS: KETOROLAC 30 MG/ML 1 ML VIAL IVP SCH ×4 (05:48→23:17)
[2017-08-01] MEDS ORDERED: VANCOMYCIN TROUGH DUE 1 EACH MISC MISCELLANE ONE (07:00)
[2017-08-01] MEDS: GABAPENTIN 400 MG CAP PO SCH ×3 (08:48→21:16)
[2017-08-01] MEDS: NICOTINE 14MG/24HR PATCH TRANSDERM SCH (08:48)
[2017-08-01] MEDS: VANCOMYCIN 1,750 MG in SODIUM CHLORIDE 0.9% 250 ML IVPB SCH (08:49)
[2017-08-01] MEDS: HYDROcodone/APAP 5-325MG 1 EACH TAB PO PRN ×3 (08:53→19:44)
[2017-08-01 09:21] LABS: Anion Gap 10 mmol/L; Blood Urea Nitrogen 9 mg/dL (9-20); Carbon Dioxide 28 mmol/L (22-30); Chloride 107 mmol/L (98-107); Glucose 141 mg/dL (74-99); Potassium 4.2 mmol/L (3.5-5.1); Sodium 145 mmol/L (137-145)
[2017-08-01] MEDS: VANCOMYCIN 2,000 MG in SODIUM CHLORIDE 0.9% 500 ML IVPB SCH ×2 (15:44→23:17)
--- NOTE | 2017-08-01 18:00 | PN ---
PROGRESS NOTE SUBJECTIVE: A 26-year-old white male with postop infection, cellulitis of the lower left leg. Bone scan is suspicious for osteomyelitis. Discussed possible PICC line with the patient and waiting on Infectious Disease recommendation for the PICC line with home IV antibiotics. Otherwise cellulitis of his left foot is greatly improving. Cardiovascular S1, S2. Lungs clear. GI soft. Hematology: Negative Homans. ASSESSMENT: Postop infection, cellulitis, osteomyelitis of the left foot. IV antibiotics will be needed with a PICC line as an outpatient. Waiting for this to be set up by Infectious Disease recommendations. MMODL / IJN: [id number] /
[2017-08-01] MEDS: MIRTAZAPINE 15 MG TAB PO SCH (21:16)
[2017-08-02] MEDS: PIPERACILLIN-TAZOBACTAM 3.375 GM in DEXTROSE/WATER 1 50ML.BAG IVPB SCH ×3 (03:06→18:10)
[2017-08-02] MEDS: KETOROLAC 30 MG/ML 1 ML VIAL IVP SCH ×3 (05:52→18:07)
[2017-08-02] MEDS: SODIUM CHLORIDE 0.9% 1,000 ML IV SCH ×3 (05:52→20:40)
[2017-08-02] MEDS: NICOTINE 14MG/24HR PATCH TRANSDERM SCH (08:13)
[2017-08-02] MEDS: VANCOMYCIN 2,000 MG in SODIUM CHLORIDE 0.9% 500 ML IVPB SCH ×2 (08:13→15:45)
[2017-08-02] MEDS: GABAPENTIN 400 MG CAP PO SCH ×3 (08:13→20:39)
[2017-08-02 08:18] LABS: Anion Gap 9 mmol/L; Blood Urea Nitrogen 12 mg/dL (9-20); Calcium 8.9 mg/dL (8.4-10.2); Carbon Dioxide 29 mmol/L (22-30); Chloride 106 mmol/L (98-107); Glucose 101 mg/dL (74-99); Potassium 4.4 mmol/L (3.5-5.1); Sodium 144 mmol/L (137-145)
[2017-08-02] MEDS: HYDROcodone/APAP 5-325MG 1 EACH TAB PO PRN ×3 (08:19→20:39)
--- NOTE | 2017-08-02 15:15 | CDI ---
Last Revision, March 2017 Documentation Clarification Form Date: 08/02/17 From: Dana Gandara RN, CCDS Admit Date: 07/30/2017 4:33:00 PM Patient Name: Marek Suazo Visit Number: [id number] Discharge Date: ATTENTION: The Clinical Documentation Specialists (CDI) and [facility] Coding Staff appreciate your assistance in clarifying documentation. Please respond to the clarification below the line at the bottom and electronically sign. The CDI & [facility] Coding staff will review the response and follow-up if needed. Please note: Queries are made part of the Legal Health Record. If you have any questions, please contact the author of this message via ITS. Dr. Rico Subramanian 07/31/17 ID assessment has patent present with cellulitis to the foot with signs of sepsis that include fever, tachycardia and leukocytosis. History/Risk Factors: Compartment syndrome, Current every day smoker Clinical Indicators: left foot surgery one week ago, presenting with complaint of increased swelling and some redness to the foot coming up into the left lower leg. WBC/Left Shift: 15.7 Lactic acid: 0.8 Blood cultures: Pending Wound Culture: Staphylococcus aureus Vitals signs on admission: 136/63 129 18 102.5 Bone scan: Findings are compatible with cellulitis. Osteomyelitis in the region of the most medial cuneiform bone and anterior margin of the talus in the differential diagnosis. Treatment: IV Fluids @150 mls/hr Vancomycin IV Zosyn IV Monitor Labs/Vital signs In your professional opinion, please clarify if these findings signify one of the following conditions, whether the condition is POA, and cause, if known: Condition Sepsis ruled out Sepsis Other, please specify Unable to determine Present on Admission: Yes No Identify the (suspected) organism Link or clarify if there is associated (due to/with): Please continue to document in your progress notes and discharge summary in order to capture severity of illness and risk of mortality. Include clinical findings that support your diagnosis. MTDD
[2017-08-02] MEDS: MIRTAZAPINE 15 MG TAB PO SCH (20:39)
--- NOTE | 2017-08-02 22:28 | PN ---
PROGRESS NOTE SUBJECTIVE: 26-year-old white male osteomyelitis of the left food. Redness still present throughout the foot. Bone scan was positive for osteomyelitis. Cardiovascular S1-S2. Lungs are clear. Integument shows open wounds x2, left foot. Redness to the entire left foot. Warm to the left foot. Continue with IV antibiotics, vanc and Zosyn. Await for Infectious Disease to recommended PICC line or versus oral antibiotics. MMODL / IJN: [id number] /
[2017-08-02 22:55] VITALS: RESP 18
[2017-08-03] MEDS: KETOROLAC 30 MG/ML 1 ML VIAL IVP SCH ×4 (00:02→17:26)
[2017-08-03] MEDS: ceFAZolin IN SWFI 2 GM/20 ML SYRINGE IVP SCH ×3 (00:03→15:16)
--- NOTE | 2017-08-03 00:36 | P.PN ---
Subjective Progress Note Date: 08/02/17 Principal diagnosis: Cellulitis left foot This is a 26-year-old male patient gives history that 4 years ago he developed acute renal failure from intensive exercise along with protein supplements. He required hemodialysis treatment once at that time. He also developed compartment syndrome to the bilateral lower extremities and the right thigh and underwent fasciotomy to all areas he states he was in an induced coma for 9 days and then took him 2 years to learn how to walk. He subsequently 2 years ago underwent a fasciotomy to the left foot and antibiotic beads were placed at that time. It was thought he was having trouble with the beads causing him pain and he had additional surgery last Sunday in the beads were removed by Dr. Muse at [facility]. Patient states that he did not have any postop complications and was feeling fine until sudden onset yesterday of feeling heat flash [place]'s temperature was 101.3. He then came into [facility] emergency center for evaluation of this was found to have a temperature of 102.5, white count of 15.7, tachycardia 129. Pulse ox was 98% on room air lactic acid 0.8. Urinalysis was clear with nitrate and leukoesterase negative. Blood culture and urine culture were obtained. Foot x-ray showed soft tissue swelling in the midfoot without focality or subcutaneous emphysema to indicate osteomyelitis. Mild. Jenkins reaction in the base of the first metatarsal. Patient was started on vancomycin and Zosyn and admitted to the [facility] floor. He is currently undergoing a nuclear medicine bone scan. Patient states that his redness and swelling have improved since his admission but he still continues to have pain and tenderness to the left foot. The foot is also started to drain serous drainage. He has noted a small amount of serous drainage on dressing when he changes it. Fever and chills are improved. Patient denies having any injury to his left foot. 08/02/2017 the patient has had further improvement. The swelling to the foot is improved and the erythema starting to improve. There is not a significant amount of drainage. He is not having much pain and denies other systemic symptoms such as fevers or chills. Objective - Vital Signs Vital signs: Vital Signs Temp 97.0 F L 08/02/17 22:55 Pulse 71 08/02/17 22:55 Resp 18 08/02/17 22:55 BP 125/72 08/02/17 22:55 Pulse Ox 95 08/02/17 22:55 Intake & Output 08/02/17 08/02/17 08/03/17 06:59 18:59 06:59 Intake Total 640 720 Output Total 700 Balance 640 20 Intake: Oral 640 720 Output: Urine 700 Other: # Voids 1 2 2 - Exam Gen: This is a 26-year-old male patient sitting up in bed and appears to be comfortable. HEENT: Head is atraumatic, normocephalic. Pupils equal, round. Sclerae is anicteric. Conjunctiva pink. Because members of the mouth are moist. NECK: Supple. No JVD. No lymphadenopathy. No thyromegaly. LUNGS: Clear to auscultation. No wheezes or rhonchi. No intercostal retractions. HEART: Regular rate and rhythm. No murmur. ABDOMEN: Soft. Bowel sounds are present. No masses. No tenderness. EXTREMITIES: To the left foot, there are 3 wounds that are new. Wound over the fifth metatarsal is having serous drainage he also has healed scars to the foot on the medial and dorsalis area foot has erythema and edema. Very little tenderness to touch. Minimal range of motion to the toes. Capillary refill is immediate dorsalis pedis is weak. 2 bilateral lower extremities he does have a healed fasciotomies scars on the lateral and medial sides of both legs and also the right thigh lateral area. NEUROLOGICAL: Patient is awake, alert and oriented x3 - Labs CBC & Chem 7: 07/31/17 08:29 08/02/17 07:49 Labs: Abnormal Lab Results - Last 24 Hours (Table) 08/02/17 Range/Units 07:49 Creatinine 0.62 L (0.66-1.25) mg/dL Glucose 101 H (74-99) mg/dL Microbiology - Last 24 Hours (Table) 07/30/17 15:27 Blood Culture - Preliminary Blood No Growth after 72 hours 07/31/17 10:48 Anaerobic Culture - Preliminary Foot - Left 07/31/17 10:00 Gram Stain - Final Leg - Left Wound Culture - Final Staphylococcus aureus Laboratory Results WBC 10.0 k/uL (3.8-10.6) 07/31/17 08:29 RBC 4.37 m/uL (4.30-5.90) 07/31/17 08:29 Hgb 13.6 gm/dL (13.0-17.5) 07/31/17 08:29 Hct 39.9 % (39.0-53.0) 07/31/17 08:29 MCV 91.4 fL (80.0-100.0) 07/31/17 08: MCH 31.1 pg (25.0-35.0) 07/31/17 08: MCHC 34.0 g/dL (31.0-37.0) 07/31/17 08:29 RDW 12.0 % (11.5-15.5) 07/31/17 08:29 Plt Count 190 k/uL (150-450) 07/31/17 08: Neutrophils % 75 % 07/31/17 08:29 Lymphocytes % 16 % 07/31/17 08: Monocytes % 5 % 07/31/17 08: Eosinophils % 3 % 07/31/17 08: Basophils % 0 % 07/31/17 08:29 Neutrophils # 7.4 k/uL (1.3-7.7) 07/31/17 08:29 Lymphocytes # 1.6 k/uL (1.0-4.8) 07/31/17 08: Monocytes # 0.5 k/uL (0-1.0) 07/31/17 08:29 Eosinophils # 0.3 k/uL (0-0.7) 07/31/17 08:29 Basophils # 0.0 k/uL (0-0.2) 07/31/17 08:29 Sodium 144 mmol/L (137-145) 08/02/17 07:49 Potassium 4.4 mmol/L (3.5-5.1) 08/02/17 07:49 Chloride 106 mmol/L (98-107) 08/02/17 07:49 Carbon Dioxide 29 mmol/L (22-30) 08/02/17 07:49 Anion Gap 9 mmol/L 08/02/17 07:49 BUN 12 mg/dL (9-20) 08/02/17 07:49 Creatinine 0.62 mg/dL (0.66-1.25) L 08/02/17 07:49 Est GFR (CKD-EPI)AfAm >90 (>60 ml/min/1.73 sqM) 08/02/17 07:49 Est GFR (CKD-EPI)NonAf >90 (>60 ml/min/1.73 sqM) 08/02/17 07:49 Glucose 101 mg/dL (74-99) H 08/02/17 07:49 Plasma Lactic Acid Pavel 0.8 mmol/L (0.7-2.0) 07/30/17 15:27 Calcium 8.9 mg/dL (8.4-10.2) 08/02/17 07:49 Total Bilirubin 0.5 mg/dL (0.2-1.3) 07/31/17 08:29 AST 27 U/L (17-59) 07/31/17 08:29 ALT 53 U/L (21-72) 07/31/17 08:29 Alkaline Phosphatase 79 U/L (38-126) 07/31/17 08:29 Total Protein 5.6 g/dL (6.3-8.2) L 07/31/17 08:29 Albumin 3.2 g/dL (3.5-5.0) L 07/31/17 08:29 Urine Color Yellow 07/30/17 16:28 Urine Appearance Clear (Clear) 07/30/17 16:28 Urine pH 7.5 (5.0-8.0) 07/30/17 16:28 Ur Specific [place] 1.015 (1.001-1.035) 07/30/17 16:28 Urine Protein Negative (Negative) 07/30/17 16:28 Urine Glucose (UA) Negative (Negative) 07/30/17 16:28 Urine Ketones Negative (Negative) 07/30/17 16:28 Urine Blood Negative (Negative) 07/30/17 16:28 Urine Nitrite Negative (Negative) 07/30/17 16:28 Urine Bilirubin Negative (Negative) 07/30/17 16:28 Urine Urobilinogen <2.0 mg/dL (<2.0) 07/30/17 16:28 Ur Leukocyte Esterase Negative (Negative) 07/30/17 16:28 Vancomycin Trough 9.5 ug/mL 08/01/17 08:48 Microbiology 07/30/17 15:27 Blood Blood Culture - Preliminary No Growth after 72 hours 07/31/17 10:48 Foot - Left Anaerobic Culture - Preliminary 07/31/17 10:00 Leg - Left Gram Stain - Final 07/31/17 10:00 Leg - Left Wound Culture - Final Staphylococcus aureus 07/30/17 16:28 Urine,Voided Urine Culture - Final Assessment and Plan (1) Postoperative infection Current Visit: Yes Status: Acute Code(s): T81.4XXA - INFECTION FOLLOWING A PROCEDURE, INITIAL ENCOUNTER SNOMED Code(s): 45999771 (2) Cellulitis Narrative/Plan: Pleasant young gentleman with the significant history is noted who had removal of antibiotic beads from his left foot is now developed a cellulitis with ascending lymphangitis. He is feeling better with elevation and antibiotic therapy. Cultures are in process. Vancomycin and Zosyn continue for now while cultures are in process. As the foot improves will likely be transitioned to oral antibiotic therapy to complete the course of his treatment of cellulitis and lymphangitis. It is unlikely there is deep infection at this time he will follow-up with his orthopedic surgeon in the [place] system after his discharge. Patient is improving today. Pain is improving. Redness is improving. We'll add in Silvadene and a wrap and elevation. Continue antibiotic therapy while cultures are in process. However appears to be MSSA and will streamlined to high-dose Ancef 2 g every 8 hours. Hopefully with antibiotic therapy elevation wrap to have further improvement and hopefully discharge soon. The x-ray reveals evidence of no osteomyelitis. The bone scan has some abnormalities however these are likely postoperative it would not plan on outpatient intravenous antibiotic therapy. He'll follow-up with his orthopedic surgeon the [place] after his discharge. Current Visit: Yes Status: Acute Code(s): L03.90 - CELLULITIS, UNSPECIFIED SNOMED Code(s): 191838399
[2017-08-03] MEDS ORDERED: VANCOMYCIN TROUGH DUE 1 EACH MISC MISCELLANE ONE (06:00)
[2017-08-03] MEDS: SODIUM CHLORIDE 0.9% 1,000 ML IV SCH ×3 (06:21→17:28)
[2017-08-03 07:16] LABS: Anion Gap 10 mmol/L; Blood Urea Nitrogen 15 mg/dL (9-20); Carbon Dioxide 28 mmol/L (22-30); Chloride 106 mmol/L (98-107); Glucose 88 mg/dL (74-99); Potassium 3.9 mmol/L (3.5-5.1); Sodium 144 mmol/L (137-145)
[2017-08-03] MEDS: NICOTINE 14MG/24HR PATCH TRANSDERM SCH (07:40)
[2017-08-03] MEDS: GABAPENTIN 400 MG CAP PO SCH ×2 (07:40→15:17)
[2017-08-03] MEDS: HYDROcodone/APAP 5-325MG 1 EACH TAB PO PRN ×2 (07:47→15:21)
[2017-08-03 15:21] VITALS: BP 129/60; PULSE 53; TEMP 97.4
--- NOTE | 2017-08-03 18:23 | PN ---
PROGRESS NOTE SUBJECTIVE: A 26-year-old white male with postop infection with cellulitis of the left foot. Dr. Flores does not feel there is osteomyelitis in there despite the positive bone scan. He switched antibiotics to IV Ancef due to coverage for MRSA. Awaiting his recommendations for how long for Ancef. How long offer oral antibiotics, etc. prior to discharge. CARDIOVASCULAR: S1, S2. LUNGS: Clear. GI: Soft. HEMATOLOGY: Negative Homans. INTEGUMENT: Left foot red, swollen with open wounds x2, as mentioned above. Slightly decreased erythema on the anterior left foot. Continue broad-spectrum IV Ancef until Dr. Flores' recommendations say otherwise. MMODL / IJN: [id number] /
--- NOTE | 2017-08-03 23:17 | P.PN ---
Subjective Progress Note Date: 08/03/17 Principal diagnosis: Cellulitis left foot This is a 26-year-old male patient gives history that 4 years ago he developed acute renal failure from intensive exercise along with protein supplements. He required hemodialysis treatment once at that time. He also developed compartment syndrome to the bilateral lower extremities and the right thigh and underwent fasciotomy to all areas he states he was in an induced coma for 9 days and then took him 2 years to learn how to walk. He subsequently 2 years ago underwent a fasciotomy to the left foot and antibiotic beads were placed at that time. It was thought he was having trouble with the beads causing him pain and he had additional surgery last Sunday in the beads were removed by Dr. Muse at [facility]. Patient states that he did not have any postop complications and was feeling fine until sudden onset yesterday of feeling heat flash [place]'s temperature was 101.3. He then came into [facility] emergency center for evaluation of this was found to have a temperature of 102.5, white count of 15.7, tachycardia 129. Pulse ox was 98% on room air lactic acid 0.8. Urinalysis was clear with nitrate and leukoesterase negative. Blood culture and urine culture were obtained. Foot x-ray showed soft tissue swelling in the midfoot without focality or subcutaneous emphysema to indicate osteomyelitis. Mild. Jenkins reaction in the base of the first metatarsal. Patient was started on vancomycin and Zosyn and admitted to the [facility] floor. He is currently undergoing a nuclear medicine bone scan. Patient states that his redness and swelling have improved since his admission but he still continues to have pain and tenderness to the left foot. The foot is also started to drain serous drainage. He has noted a small amount of serous drainage on dressing when he changes it. Fever and chills are improved. Patient denies having any injury to his left foot. 08/02/2017 the patient has had further improvement. The swelling to the foot is improved and the erythema starting to improve. There is not a significant amount of drainage. He is not having much pain and denies other systemic symptoms such as fevers or chills. 08/03/2017 patient has had further improvement. Pain is improved swelling almost no drainage able to ambulate with much less discomfort. Objective - Vital Signs Vital signs: Vital Signs Temp 97.4 F L 08/03/17 15:00 Pulse 53 L 08/03/17 15:00 Resp 18 08/03/17 15:00 BP 129/60 08/03/17 15:00 Pulse Ox 99 08/03/17 15:00 Intake & Output 08/03/17 08/03/17 08/04/17 06:59 18:59 06:59 Output Total 300 700 Balance -300 -700 Output: Urine 300 700 Other: Voiding Method Urinal Toilet Urinal # Voids 2 3 - Exam Gen: This is a 26-year-old male patient sitting up in bed and appears to be comfortable. HEENT: Head is atraumatic, normocephalic. Pupils equal, round. Sclerae is anicteric. Conjunctiva pink. Because members of the mouth are moist. NECK: Supple. No JVD. No lymphadenopathy. No thyromegaly. LUNGS: Clear to auscultation. No wheezes or rhonchi. No intercostal retractions. HEART: Regular rate and rhythm. No murmur. ABDOMEN: Soft. Bowel sounds are present. No masses. No tenderness. EXTREMITIES: To the left foot, there are 3 wounds that are new. Wound over the fifth metatarsal is having serous drainage he also has healed scars to the foot on the medial and dorsalis area foot has improved erythema and edema. Very little tenderness to touch. Minimal range of motion to the toes. Capillary refill is immediate dorsalis pedis is weak. bilateral lower extremities he does have a healed fasciotomies scars on the lateral and medial sides of both legs and also the right thigh lateral area. NEUROLOGICAL: Patient is awake, alert and oriented x3 - Labs CBC & Chem 7: 07/31/17 08:29 08/03/17 06:44 Labs: Abnormal Lab Results - Last 24 Hours (Table) 08/03/17 Range/Units 06:44 Creatinine 0.63 L (0.66-1.25) mg/dL Microbiology - Last 24 Hours (Table) 07/30/17 15:27 Blood Culture - Preliminary Blood No Growth after 96 hours Laboratory Results WBC 10.0 k/uL (3.8-10.6) 07/31/17 08:29 RBC 4.37 m/uL (4.30-5.90) 07/31/17 08:29 Hgb 13.6 gm/dL (13.0-17.5) 07/31/17 08: Hct 39.9 % (39.0-53.0) 07/31/17 08: MCV 91.4 fL (80.0-100.0) 07/31/17 08: MCH 31.1 pg (25.0-35.0) 07/31/17 08: MCHC 34.0 g/dL (31.0-37.0) 07/31/17 08: RDW 12.0 % (11.5-15.5) 07/31/17 08: Plt Count 190 k/uL (150-450) 07/31/17 08: Neutrophils % 75 % 07/31/17 08: Lymphocytes % 16 % 07/31/17 08: Monocytes % 5 % 07/31/17 08: Eosinophils % 3 % 07/31/17 08: Basophils % 0 % 07/31/17 08: Neutrophils # 7.4 k/uL (1.3-7.7) 07/31/17 08: Lymphocytes # 1.6 k/uL (1.0-4.8) 07/31/17 08: Monocytes # 0.5 k/uL (0-1.0) 07/31/17 08: Eosinophils # 0.3 k/uL (0-0.7) 07/31/17 08: Basophils # 0.0 k/uL (0-0.2) 07/31/17 08:29 Sodium 144 mmol/L (137-145) 08/03/17 06:44 Potassium 3.9 mmol/L (3.5-5.1) 08/03/17 06:44 Chloride 106 mmol/L (98-107) 08/03/17 06:44 Carbon Dioxide 28 mmol/L (22-30) 08/03/17 06:44 Anion Gap 10 mmol/L 08/03/17 06:44 BUN 15 mg/dL (9-20) 08/03/17 06:44 Creatinine 0.63 mg/dL (0.66-1.25) L 08/03/17 06:44 Est GFR (CKD-EPI)AfAm >90 (>60 ml/min/1.73 sqM) 08/03/17 06:44 Est GFR (CKD-EPI)NonAf >90 (>60 ml/min/1.73 sqM) 08/03/17 06:44 Glucose 88 mg/dL (74-99) 08/03/17 06:44 Plasma Lactic Acid Pavel 0.8 mmol/L (0.7-2.0) 07/30/17 15:27 Calcium 9.0 mg/dL (8.4-10.2) 08/03/17 06:44 Total Bilirubin 0.5 mg/dL (0.2-1.3) 07/31/17 08:29 AST 27 U/L (17-59) 07/31/17 08:29 ALT 53 U/L (21-72) 07/31/17 08:29 Alkaline Phosphatase 79 U/L (38-126) 07/31/17 08:29 Total Protein 5.6 g/dL (6.3-8.2) L 07/31/17 08:29 Albumin 3.2 g/dL (3.5-5.0) L 07/31/17 08:29 Urine Color Yellow 07/30/17 16:28 Urine Appearance Clear (Clear) 07/30/17 16:28 Urine pH 7.5 (5.0-8.0) 07/30/17 16:28 Ur Specific [place] 1.015 (1.001-1.035) 07/30/17 16:28 Urine Protein Negative (Negative) 07/30/17 16:28 Urine Glucose (UA) Negative (Negative) 07/30/17 16:28 Urine Ketones Negative (Negative) 07/30/17 16:28 Urine Blood Negative (Negative) 07/30/17 16:28 Urine Nitrite Negative (Negative) 07/30/17 16:28 Urine Bilirubin Negative (Negative) 07/30/17 16:28 Urine Urobilinogen <2.0 mg/dL (<2.0) 07/30/17 16:28 Ur Leukocyte Esterase Negative (Negative) 07/30/17 16:28 Vancomycin Trough 8.4 ug/mL 08/03/17 06:44 Microbiology 07/30/17 15:27 Blood Blood Culture - Preliminary No Growth after 96 hours 07/31/17 10:48 Foot - Left Anaerobic Culture - Preliminary 07/31/17 10:00 Leg - Left Gram Stain - Final 07/31/17 10:00 Leg - Left Wound Culture - Final Staphylococcus aureus 07/30/17 16:28 Urine,Voided Urine Culture - Final Assessment and Plan (1) Postoperative infection Status: Acute Code(s): T81.4XXA - INFECTION FOLLOWING A PROCEDURE, INITIAL ENCOUNTER SNOMED Code(s): 81486865 (2) Cellulitis Narrative/Plan: Pleasant young gentleman with the significant history is noted who had removal of antibiotic beads from his left foot is now developed a cellulitis with ascending lymphangitis. He is feeling better with elevation and antibiotic therapy. Cultures are in process. Vancomycin and Zosyn continue for now while cultures are in process. As the foot improves will likely be transitioned to oral antibiotic therapy to complete the course of his treatment of cellulitis and lymphangitis. It is unlikely there is deep infection at this time he will follow-up with his orthopedic surgeon in the [place] system after his discharge. Patient is improving today. Pain is improving. Redness is improving. We'll add in Silvadene and a wrap and elevation. Continue antibiotic therapy while cultures are in process. However appears to be MSSA and will streamlined to high-dose Ancef 2 g every 8 hours. Hopefully with antibiotic therapy elevation wrap to have further improvement and hopefully discharge soon. The x-ray reveals evidence of no osteomyelitis. The bone scan has some abnormalities however these are likely postoperative it would not plan on outpatient intravenous antibiotic therapy. He'll follow-up with his orthopedic surgeon the [place] after his discharge. 08/03/2017 patient has had further improvement. Having no fevers or chills. Leukocytosis has resolved and is feeling considerably better. With the wrap in place is able to able to the bathroom further discomfort. He is due to see a surgeon on Sunday he will be on oral antibiotic therapy for 7 days at discharge cephalexin 500 mg every 6 hours can be utilized. At the time of his appointment with the surgeon his sutures will be evaluated and removed if surgeon deems this necessary. He can follow-up in the office he has any further needs related to the foot cellulitis. Status: Acute Code(s): L03.90 - CELLULITIS, UNSPECIFIED SNOMED Code(s): 305154850
--- NOTE | 2017-08-09 16:49 | CDI ---
Last Revision, March 2017 Documentation Clarification Form Date: 08/09/17 From: Dana Gandara RN, CCDS Admit Date: 07/30/2017 4:33:00 PM Patient Name: Marek Suazo Visit Number: [id number] Discharge Date: ATTENTION: The Clinical Documentation Specialists (CDI) and [facility] Coding Staff appreciate your assistance in clarifying documentation. Please respond to the clarification below the line at the bottom and electronically sign. The CDI & [facility] Coding staff will review the response and follow-up if needed. Please note: Queries are made part of the Legal Health Record. If you have any questions, please contact the author of this message via ITS. Dr. Rico Subramanian 07/31/17 ID assessment has patent present with cellulitis to the foot with signs of sepsis that include fever, tachycardia and leukocytosis. History/Risk Factors: Compartment syndrome, Current every day smoker Clinical Indicators: left foot surgery one week ago, presenting with complaint of increased swelling and some redness to the foot coming up into the left lower leg. WBC/Left Shift: 15.7 Lactic acid: 0.8 Blood cultures: Pending Vitals signs on admission: 136/63 129 18 102.5 Bone scan: Findings are compatible with cellulitis. Osteomyelitis in the region of the most medial cuneiform bone and anterior margin of the talus in the differential diagnosis. Treatment: IV Fluids @150 mls/hr Vancomycin IV Zosyn IV Monitor Labs/Vital signs In your professional opinion, please clarify if these findings signify one of the following conditions, whether the condition is POA, and cause, if known: Condition Sepsis Sepsis ruled out Other, please specify Unable to determine Present on Admission: Yes No Identify the (suspected) organism Link or clarify if there is associated (due to/with): Please continue to document in your progress notes and discharge summary in order to capture severity of illness and risk of mortality. Include clinical findings that support your diagnosis. MTDD
--- NOTE | 2017-08-13 10:31 | CDI ---
Last Revision, March 2017 Documentation Clarification Form Date: 08/09/2017 4:51:00 PM Resubmitted 08/13/2017 From: Dana Gandara RN, CCDS Admit Date: 07/30/2017 4:33:00 PM Patient Name: Marek Suazo Visit Number: [id number] Discharge Date: 08/03/2017 ATTENTION: The Clinical Documentation Specialists (CDI) and [facility] Coding Staff appreciate your assistance in clarifying documentation. Please respond to the clarification below the line at the bottom and electronically sign. The CDI & [facility] Coding staff will review the response and follow-up if needed. Please note: Queries are made part of the Legal Health Record. If you have any questions, please contact the author of this message via ITS. Dr. Rico Subramanian: 07/31/17 ID assessment has patent present with cellulitis to the foot with signs of sepsis that include fever, tachycardia and leukocytosis. History/Risk Factors: Compartment syndrome, Current every day smoker Clinical Indicators: left foot surgery one week ago, presenting with complaint of increased swelling and some redness to the foot coming up into the left lower leg. WBC/Left Shift: 15.7, Lactic acid: 0.8, Blood cultures: Pending Vitals signs on admission: 136/63 129 18 102.5 Bone scan: Findings are compatible with cellulitis. Osteomyelitis in the region of the most medial cuneiform bone and anterior margin of the talus in the differential diagnosis. Treatment: IV Fluids @150 mls/hr, Vancomycin IV, Zosyn IV, Monitor Labs/Vital signs In your professional opinion, please clarify if these findings signify one of the following conditions, whether the condition is POA, and cause, if known: Condition Sepsis ruled out Sepsis Other, please specify Unable to determine Present on Admission: Yes No Identify the (suspected) organism Link or clarify if there is associated (due to/with): Please continue to document in your progress notes and discharge summary in order to capture severity of illness and risk of mortality. Include clinical findings that support your diagnosis. MTDD
== END 2017-08-03 18:56 | disposition home or self-care (01) | DRG 863 ==
LOC: EC 14:33 → 4MS4W 16:33
PROVIDERS: ADMIT Family Medicine; ATTEND Family Medicine
DX: T81.4XXA Infection following a procedure, initial encounter (principal); M86.9 Osteomyelitis, unspecified; L03.116 Cellulitis of left lower limb; R00.0 Tachycardia, unspecified; J32.9 Chronic sinusitis, unspecified; F12.90 Cannabis use, unspecified, uncomplicated; F17.210 Nicotine dependence, cigarettes, uncomplicated; Z79.899 Other long term (current) drug therapy; Z79.891 Long term (current) use of opiate analgesic; Z80.3 Family history of malignant neoplasm of breast; Z81.1 Family history of alcohol abuse and dependence
CPT/HCPCS: 36415; 78315; 80048; 80053; 80202; 81003; 83605; 85025; 87040; 87070; 87075; 87077; 87086; 87186; 87205; 96374; 99284